=== PATIENT | female | born 1985 | race Caucasian/White ===

== ENCOUNTER 2023-08-07 14:28 | Outpatient (CLI) | payer BC, SELFPAY ==
[2023-08-07 18:28] LABS: Vitamin D 25 Hydroxy 54.9 ng/mL
[2023-08-09 04:59] LABS: Insulin Level Total 6.2 uIU/mL
[2023-08-09 05:43] LABS: DHEA-Sulfate 244 mcg/dL (19-237)
[2023-08-12 15:29] LABS: Testosterone Free 4.7 pg/mL (0.1-6.4); Testosterone Total 36 ng/dL (2-45)
== END 2023-08-07 14:29 | disposition home or self-care (01) ==
LOC: ANHLAB 14:30
PROVIDERS: Visit Provider Nurse Practitioner Obstetrics & Gynecology
DX: R63.5 Abnormal weight gain (principal); L68.0 Hirsutism
CPT/HCPCS: 36415; 82306; 82627; 83036; 83525; 84402; 84403; 84443